=== PATIENT | male | born 1960 | race African-American/Black ===

== ENCOUNTER 2017-06-09 14:23 | Emergency (ER) | payer OTHER ==
[~2017-06-09] VITALS: Ht 172.7 cm; Wt 66.0 kg
[2017-06-09] MEDS ORDERED: KETOROLAC 60MG/2ML VIAL IM ONE (21:45)
[2017-06-09] MEDS ORDERED: DIAZEPAM 5 MG TABLET PO ONE (23:00)
[2017-06-10] VITALS: BP 154/60
== END 2017-06-10 00:06 | disposition home or self-care (01) ==
LOC: ER 17:08
DX: M54.5 Low back pain (principal); F17.210 Nicotine dependence, cigarettes, uncomplicated
CPT/HCPCS: 96372; 99283; J1885; Z7610

== ENCOUNTER 2024-05-21 22:44 | Emergency (ER) | payer OTHER ==
[~2024-05-21] VITALS: Ht 172.7 cm; Wt 57.7 kg
[2024-05-21 22:45] VITALS: BP 202/77; RESP 21; O2SAT 100
[2024-05-21 22:46] VITALS: PULSE 71; O2SAT 99
[2024-05-22 01:02] LABS: BASOPHILS % 0.6 % (0.0-2.0); EOSINOPHILS % 2.7 % (0.0-5.0); HEMATOCRIT. 42.1 % (42.0-52.0); HEMOGLOBIN. 14.8 g/dL (14.0-18.0); LYMPHOCYTES % 26.4 % (20.0-50.0); MEAN CORPUSCULAR HEMOGLOBIN 34.8 pg (28.0-32.0); MEAN CORPUSCULAR HGB CONC 35.2 g/dL (31.0-37.0); MEAN PLATELET VOLUME 8.9 fl (7.4-10.4); MONOCYTES % 10.9 % (2.0-8.0); NEUTROPHILS % 59.4 % (40.0-76.0); PLATELET 190 x1000/uL (130-400); RED BLOOD CELL COUNT 4.25 mill/uL (4.7-6.1); RED CELL DISTRIBUTION WIDTH 13.6 % (11.6-14.6); WHITE BLOOD COUNT 6.8 x1000/uL (4.5-11.0)
[2024-05-22 01:16] LABS: CHLORIDE 104 mEq/L (98-107); POTASSIUM 4.1 mEq/L (3.5-5.1); SODIUM 141 mEq/L (136-145)
[2024-05-22 01:17] LABS: CARBON DIOXIDE 30 mEq/L (21-32)
[2024-05-22 01:18] LABS: CALCIUM 10.2 mg/dL (8.7-10.4)
[2024-05-22 01:22] LABS: CREATININE 0.9 mg/dL (0.6-1.3); GLUCOSE 99 mg/dL (70-105)
[2024-05-22 01:23] LABS: TROPONIN I HIGH SENSITIVITY 17 ng/L (3.0-53); UREA NITROGEN BLOOD 9 mg/dL (9-23)
[2024-05-22 03:51] LABS: TROPONIN I HIGH SENSITIVITY 20 ng/L (3.0-53)
[2024-05-22] MEDS ORDERED: NAPR-681 MT (04:33)
[2024-05-22] MEDS ORDERED: CYCL5TAB3 PO (04:33)
[2024-05-22] MEDS: ACETAMINOPHEN 325MG TABLET PO NR (04:34)
[2024-05-22 04:35] VITALS: TEMP 98
[2024-05-22] MEDS: ACETAMINOPHEN 325MG TABLET PO STA (04:35)
== END 2024-05-22 05:02 | disposition home or self-care (01) ==
LOC: ER 22:44
DX: S20.219A Contusion of unspecified front wall of thorax, initial encounter (principal); R07.89 Other chest pain; V49.49XA Driver injured in collision with other motor vehicles in traffic accident, initial encounter; Y93.89 Activity, other specified; Y92.89 Other specified places as the place of occurrence of the external cause; Y99.8 Other external cause status
CPT/HCPCS: 36415; 71045; 80048; 84484; 85025; 93005; 99284; 99285